=== PATIENT | male | born 1955 | race Hispanic/Latino ===

== ENCOUNTER 2024-03-31 12:38 | Outpatient (CLI) | payer MEDICARE ==
[2024-03-31] MEDS ORDERED: Iopamidol 370 76% 100 ML VIAL ONE (13:43)
== END 2024-03-31 12:39 | disposition home or self-care (01) ==
LOC: CSHCT 12:38
PROVIDERS: ATTEND Internal Medicine
DX: E27.8 Other specified disorders of adrenal gland (principal); D35.02 Benign neoplasm of left adrenal gland; N28.9 Disorder of kidney and ureter, unspecified
CPT/HCPCS: 74170; 82565; Q9967